=== PATIENT | female | born 1970 | race Caucasian/White ===

== ENCOUNTER 2017-09-21 09:13 | Emergency (ER) | payer SELFPAY ==
[2017-09-21 10:39] LABS: URINE BLOOD (Dip) POC 3+ (NEGATIVE); URINE GLUCOSE (Dip) POC Negative (NEGATIVE); URINE KETONES (Dip) POC Negative (NEGATIVE); URINE LEUKOCYTE EST (Dip) POC Negative (NEGATIVE); URINE NITRITE (Dip) POC Negative (NEGATIVE); URINE TOTAL PROTEIN POC Negative (NEGATIVE)
[2017-09-21] MEDS: KETOROLAC 60 MG INJ IM (10:49)
== END 2017-09-21 10:59 | disposition home or self-care (01) ==
LOC: FTE 09:13
DX: M54.2 Cervicalgia (principal)
CPT/HCPCS: 81003; 81025; 96372; 99284-25